=== PATIENT | female | born 1995 | race Two or more races ===

== ENCOUNTER 2018-02-27 19:35 | Emergency (ER) | payer OTHER ==
[~2018-02-27] VITALS: Ht 172.7 cm; Wt 69.9 kg
[2018-02-27] MEDS ORDERED: HUMALOG100 UNIT/1 (19:42)
== END 2018-02-27 23:22 | disposition home or self-care (01) ==
LOC: ER 19:35
DX: O26.891 Other specified pregnancy related conditions, first trimester (principal); R10.2 Pelvic and perineal pain; Z34.01 Encounter for supervision of normal first pregnancy, first trimester

== ENCOUNTER → 2023-05-19 08:13 | Outpatient (CLI) | payer OTHER ==
[~2023-05-19 08:13] MED LIST: HUMALOG100 UNIT/1
== END | disposition home or self-care (01) ==
LOC: PRENATAL 08:13
PROVIDERS: ATTEND Obstetrics & Gynecology Maternal & Fetal Medicine
DX: O26.849 Uterine size-date discrepancy, unspecified trimester (principal); O34.219 Maternal care for unspecified type scar from previous cesarean delivery; O24.319 Unspecified pre-existing diabetes mellitus in pregnancy, unspecified trimester; Z3A.17 17 weeks gestation of pregnancy